=== PATIENT | female | born 1945 | race Caucasian/White ===

== ENCOUNTER 2019-05-29 12:06 | Emergency (ER) | payer MEDICARE ==
[2019-05-29] MEDS ORDERED: NS 0.9% 1000 ML** 1,000 ML IV ONE (12:08)
--- NOTE | 2019-05-29 12:14 | ED ---
Neurological HPI - HPI Summary HPI Summary: Pt is a 74 y/o F presenting to the ED brought in by EMS for altered mental status. LEVEL 5 CAVEAT: Pts full hx and physical limited d/t AMS. EMS arrival at 12:06pm. SANTANA MOJICA CALLED at 12:08pm. Per EMS, pts last known well is 02:30 on 05/29/19. Pts left early this morning to run errands and found her at 11:00 still lying in bed, alert but very disoriented and confused, responding with only one or two words at a time. Pt is on Coumadin for a history of a fib. On EMS stretcher, pt states she knows where she is but is unable to name [facility], instead says I m here. She is able to say her name. She answers "yes" to do you know what year it is" but does not respond when asked to say the year. Per EMS, blood glucose was 168. BP ranged between 200/150 and 100/70 per EMS. Pt denies pain. Pt directly to CT for santana mojica on EMS stretcher Pts in room as of 12:18. Pts confirms pts hx of CVA 5yrs ago that caused R eye visual changes without other deficits, as well as being on Coumadin since then, with no missed doses. He states he woke up around 0230 to feed their cat and the pt was asleep in bed, but stirred. The last time he saw her awake, alert, and oriented x3 was around 23:30 on 05/28/19, when they were going to sleep. He ran some errands this morning and returned around 11:00 to find her very confused with decreased level of responsiveness. states she was unable to speak at first, did nod, and unable to move extremities. The pt reportedly could understand what he was asking her, but was unable to adequately respond, as he asked if this seemed similar to her stroke and she said yes. Pt normally is independent, walking, driving, and fully functioning. Pts in room as of 12:18. Pts confirms pts hx of CVA 5yrs ago that caused R eye visual changes without other deficits, as well as being on Coumadin since then, with no missed doses. He states he woke up around 0230 to feed their cat and the pt was asleep in bed. The last time he saw her awake, alert, and oriented x3 was around 23:30 on 05/28/19, when they were going to sleep. He ran some errands this morning and returned around 11:00 to find her very confused with decreased level of responsiveness. The pt reportedly could understand what he was asking her, but was unable to adequately respond, as he asked if this seemed similar to her stroke and she said yes. Pt normally is independent, walking, driving, and fully functioning. Pt has not physical or mental limitations following previous stroke. Dr. العلي at bedside - 12:25 - introduced to family - pt with left MCA stroke - awaiting formal report 12:31 radiology called to discuss results of plain head CT. As of 12:34, pt denies headache and states she is feeling better. Per Dr. العلي , pt's BP is in the mid-200s systolic. He would like the BP to be controlled, below 180 systolic - recommend Labetolol IVP or cardene gtt -review of records, pt with allergy to Calcium channel tom ( throat swelling) Pt take metoprolol - did not take today. Pt with allergy to Timolol - will check with hospital pharmacy reviewed final CT report with Dr. العلي - requested I contact neuro at [facility] - History of Current Complaint Stated Complaint: AMS PER EMS Time Seen by Provider: 05/29/19 12:06 Last Known Well Date: 05/28/19 23:30 Hx Obtained From: Family/Microfilm Clerk - , EMS Hx From Patient Unobtainable Due To: Altered Mental Status Onset/Duration: Started hours ago, Still Present Timing: Constant Onset Severity: Moderate Current Severity: Moderate Character: Responsiveness Aggravating: Unknown Alleviating: Nothing Associated Signs and Symptoms: Positive: Confusion Related Hx: Coumadin - Allergy/Home Medications Allergies/Adverse Reactions: Allergies Allergy/AdvReac Type Severity Reaction Status Date / Time MS Amlodipine [From Norvasc] Allergy See Comment Verified 11/16/14 08:57 MS Brinzolamide [From Azopt] Allergy See Comment Verified 11/16/14 09:03 MS Lisinopril [Lisinopril] Allergy See Comment Verified 11/16/14 08:57 MS Timolol [Timolol] Allergy See Comment Verified 11/16/14 09:03 MS Travoprost Allergy See Comment Verified 11/16/14 09:03 [From Travatan Z] MS Valsartan [Valsartan] Allergy See Comment Verified 11/16/14 08:57 MS Epinephrine [Epinephrine] AdvReac See Comment Verified 11/16/14 08:53 simbrinza eye drop Allergy See Comment Uncoded 11/16/14 09:03 local pain medication "debra" AdvReac See Comment Uncoded 11/16/14 08:57 Home Medications: Home Medications Levobunolol 0.5% OPTH.ELHAM* 1 drop BOTH EYES BID 05/29/19 [History Confirmed 07/05] Metoprolol Succinate XL TAB* [Toprol XL TAB*] 37.5 mg PO DAILY 05/29/19 [ History Confirmed 05/29/19] Warfarin TAB(*) [Coumadin TAB(*)] 5 mg PO MOTUTHFRSA 05/29/19 [History Confirmed 05/29/19] PMH/Surg Hx/FS Hx/Imm Hx Previously Healthy: No Endocrine/Hematology History: Reports: Hx Anticoagulant Therapy - coumadin Denies: Hx Diabetes Cardiovascular History: Reports: Hx Atrial Fibrillation - stable for past 6- 7yrs as of may 2019, Hx Hypercholesterolemia - tx'ed with diet, Hx Hypertension Neurological History: Reports: 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 Pt's states there is no hx of seizures or CVA. - Social History Occupation: Retired Lives: With Family - Alcohol Use: None Hx Substance Use: No Substance Use Type: Reports: None Hx Tobacco Use: No Smoking Status (MU): Never Smoked Tobacco Review of Systems - ROS Summary Review of Systems Summary: LEVEL 5 CAVEAT: Pts full hx and physical limited d/t AMS. Negative: Myalgia Neurological: Other - AMS Negative: Headache All Other Systems Reviewed And Are Negative: No Physical Exam - Summary Physical Exam Summary: Vital Signs Reviewed: Yes Alert, eye open to voice, unable to answer most questions other then "Yes, No" answers Eyes: Conjunctiva Clear, TORI. EOM intact and full ENT: Hearing grossly normal TM x 2 clear, mmoist, uvula midline, no exudate, no erythema Neck: Positive: Supple Respiratory: Positive: No respiratory distress, No accessory muscle use + CTA throughout no w/r Cardiovascular: RRR nl s1, s2 no m/r CBT <2 sec abd soft + BS nt/nd no guarding, no distension Musculoskeletal Exam: Unable to move LE b/l, decreased movement left UE, weak RUE 4/5 grasp right - see NIH scale Neurological: Positive: NIH 24 - see flow sheet Psychological: 1 word answers, confused Skin: Positive: no rash, no ecchymosis Triage Information Reviewed: Yes Vital Signs Reviewed: Yes Completion Of Physical Exam Limited Due To: Altered Mental Status, Level 5 Procedures - Sedation Patient Received Moderate/Deep Sedation with Procedure: No Diagnostics - Laboratory Result Diagrams: 05/29/19 12:25 05/29/19 12:25 Lab Statement: Any lab studies that have been ordered have been reviewed, and results considered in the medical decision making process. - CT Brain CT CT Interpretation Completed By: Radiologist Summary of CT Findings: LOSS OF DÍAZ-WHITE DIFFERENTIATION IN THE LEFT FRONTAL AND ANTERIOR PARIETAL LOBE CONSISTENT WITH SUBACUTE NONHEMORRHAGIC INFARCT OF THE LEFT MCA TERRITORY. ED physician has reviewed this report. Head/Neck CTA CT Interpretation Completed By: Radiologist Summary of CT Findings: 1. ATHEROSCLEROSIS. 2. APPROXIMATELY 30% STENOSIS OF THE PROXIMAL RIGHT INTERNAL CAROTID ARTERY BY NASCET CRITERIA. 3. THERE IS QUESTIONABLE LOSS OF AN M3 BRANCH OF THE ANTERIOR DIVISION OF THE LEFT MCA TERRITORY. ELSEWHERE, THERE IS NO ANEURYSM, VASCULAR MALFORMATION, OCCLUSION, OR STENOSIS OF THE VISUALIZED INTRACRANIAL CIRCULATION. 4. HYPOPERFUSION RESPONSE WITH AREAS OF LOSS OF DÍAZ-WHITE DIFFERENTIATION OF THE LEFT MCA TERRITORY CONSISTENT WITH SUBACUTE NONHEMORRHAGIC INFARCT. ED physician has reviewed this report. - EKG 1243 Cardiac Rate: Other Rate - afib 87bpm EKG Rhythm: Atrial Fibrillation ST Segment: Other Ectopy: None Summary of EKG Findings: EKG at 1243 shows atrial fibrillation at 87bpm with slight ST depressions bilaterally. ED physician has reviewed and interpreted this EKG. NIH Scale - NIH Scale Level of Consciousness: Responds to Minor Stimulation Ask Patient the Month and His/Her Age: Neither Correct/Aphasic Ask Pt to Open/Close Eyes and Paper Reclaiming Machine Operator/Release Non-Paretic Hand: Both Correctly Best Gaze (Only Horizontal Eye Movement): Normal Visual Field Testing: No Visual Loss Facial Paresis-Pt to Smile & Close Eyes or Grimace Symmetry: Normal/Symmetrical Motor Function - Right Arm: Effort Against Newton Motor Function - Left Arm: No Effort Against Newton Motor Function - Right Leg: No Effort Against Newton Motor Function - Left Leg: No Effort Against Newton Limb Ataxia-Must be out of Proportion to Weakness Present: Present in Two Limbs Sensory (Use Pinprick to Test Arms/Legs/Trunk/Face): Severe to Total Loss Best Language (Describe Picture, Name Items): Severe Aphasia Dysarthria (Read Several Words): Slurs Some Words NIH Stroke Scale Comment: 24 Re-Evaluation - Re-Evaluation 1st re-eval Re-Evaluation Time: 12:53 Change: Unchanged Comment: Per Dr. العلي, we should discuss plan of care with [facility] for possible transfer if helicopters are not flying. call to transfer center, images pushed, paperwork initiated 2nd re-eval Re-Evaluation Time: 12:57 Change: Unchanged Comment: I spoke with Dr. Lacie Murcia from [place] who recommends 5mg push and then IV drip of Labetalol. Pt will transferred to [facility] and admitted NICU - updated Dr. العلي, pt and pt's at bedside 3rd re-eval Re-Evaluation Time: 13:42 Change: Unchanged Comment: Pt's BP decreasing as per ELINA Arita., after 5mg Labetalol push. pt with nausea - will give zofran Course/Dx - Course Course Of Treatment: Patient presents to emergency department by EMS. Patient found this morning by her aphasic decreased level of alertness and ability to move her lower extremities. Patient also with global weakness. EMS was called patient's blood sugar was 125. En route patient became a little more alert. Patient able to move her right arm was simply weak. Patient able to answer questions with yes or no but cannot expound. The patient's blood pressure noted to be markedly elevated. Concern for acute stroke. Patient does have history of strokes and is currently on warfarin. We'll send directly physical great CT. We'll update Dr. العلي neurologist on-call upon his arrival. We'll closely reassess when she returns. - Diagnoses Provider Diagnoses: Acute ischemic left MCA stroke During the Visit The Following Alert/Code Occurred: Code Mojica - Critical Care Time Critical Care Time: 75-104 min Discharge ED - Sign-Out/Discharge Documenting (check all that apply): Patient Departure - Discharge Plan Condition: Stable Disposition: TRANS HIGHER LVL OF CARE FAC Referrals: Tim Garcia MD [Medical Doctor] - - Billing Disposition and Condition Condition: STABLE Disposition: Trans Higher Lvl of Care Fac - Attestation Statements Document Initiated by Scribe: Yes Documenting Scribe: Kaila Lundberg Provider For Whom Kole is Documenting (Include Credential): Arely Schrader MD. Scribe Attestation: Kaila Kirby, scribed for Arely Schrader MD. on 05/29/19 at 1342. Scribe Documentation Reviewed: Yes Provider Attestation: The documentation as recorded by the Kaila pascual accurately reflects the service I personally performed and the decisions made by , Arely Schrader MD. Status of Scribe Document: Viewed
[2019-05-29] MEDS ORDERED: Iodixanol* (CONTRAST) 320 MG/ML 100 ML SDV IV ONE (12:27)
[2019-05-29] MEDS ORDERED: Aspirin SUPP* 300 MG PR ONE (12:42)
[2019-05-29 12:46] LABS: ABS Lymphocytes 0.5 10^3/ul (1.0-4.8); ABS Monocytes 0.2 10^3/ul (0-0.8); ABS Neutrophils 6.7 10^3/ul (1.5-7.7); Eosinophil % 0.1 %; Hematocrit 42 % (35-47); Hemoglobin 13.8 g/dL (12.0-16.0); Lymphocyte % 6.8 %; Mean Corpuscular HGB Conc 33 g/dL (31-36); Mean Corpuscular Hemoglobin 31 pg (27-31); Mean Corpuscular Volume 93 fL (80-97); Mean Platelet Volume 8.3 fL (7.4-10.4); Platelet Count 178 10^3/uL (150-450); Red Blood Count 4.48 10^6 /uL (3.70-4.87); Red Cell Distribution Width 15 % (10-15); White Blood Count 7.5 10^3/uL (3.5-10.8)
[2019-05-29 12:53] LABS: Activated Partial Thrombo Time 31.8 seconds (26.0-38.0); INR 1.91 (0.82-1.09)
[2019-05-29 13:05] LABS: Troponin I 0.01 ng/mL (<0.04)
[2019-05-29] MEDS ORDERED: Labetalol IV* 200 MG in NS 0.9% 250 ML* 160 ML IV ONE (13:05)
[2019-05-29 13:06] LABS: Albumin 3.6 g/dL (3.2-5.2); Albumin/Globulin Ratio 1.3 (1-3); BUN/Creatinine Ratio 28.3 (8-20); Calcium 8.1 mg/dL (8.6-10.3); EGFR African American 136.8 (>60); EGFR Non-African American 113.1 (>60); Globulin 2.8 g/dL (2-4); HDL Cholesterol 45.8 mg/dL; Potassium 3.1 mmol/L (3.5-5.0); Total Bilirubin 0.8 mg/dL (0.2-1.0); Total Protein 6.4 g/dL (6.4-8.9)
[2019-05-29] MEDS ORDERED: Labetalol IV* 5 MG/ML 20 ML VIAL IV PUSH ONE ×2 (13:11→14:02)
[2019-05-29] MEDS ORDERED: Ondansetron INJ* 2 MG/ML VIAL IV ONE ×2 (13:41→13:42)
[2019-05-29] MEDS ORDERED: KCL 10 MEQ/50 ML IVPREMIX* 10 MEQ/50 ML BAG IV ONE (14:06)
[2019-05-29 14:50] VITALS: BP 187/93
--- NOTE | 2019-05-29 16:03 | CONS ---
NEUROLOGY CONSULTATION NOTE: DATE OF CONSULT: 05/29/19 - EMERGENCY DEPT CONSULTING PROVIDER: Dr. Arely Schrader. REASON FOR CONSULT: Stroke and activated Code Hernandez. CHIEF COMPLAINT: Severe aphasia. HISTORY OF PRESENT ILLNESS: The history was mostly obtained from Mr. Freed, who was at bedside. The patient has severe aphasia and is unable to provide any medical history. The patient is a 74-year-old right-handed female who is completely independent with a prehospitalization modified Jenny score of 0. She was driving prior to this admission. The patient was last known well at 11: 30 a.m. last night. Mr. Freed stated that he woke up at 2 o'clock and she was making noises, but no conversation was held. Mr. Freed checked on the patient at approximately 11 a.m. today and noticed that she was nonverbal and minimally responsive. Her eyes were open. She was unable to move. When he asked her if she was having a stroke, she nodded yes. The patient immediately presented to [facility] via EMS. Accu-Chek per EMS was 116. The patient had an NIH Stroke Scale of approximately 25 for the followin+ for level of consciousness, 1+ for asking month and age, 0 for blinking eyes, 0 for horizontal extraocular movement and visual field cut, 2+ for complete hemianopsia on the right. Right facial droop with minor paralysis, 1+ left arm motor drifts, but does not hit the bed on the left, drifts and does not hit the bed on the right, left leg motor drift. No movements on the left. Right leg motor drift. No effort against gravity. Limb ataxia to limbs, which gives us a score of 2. Sensation mild to moderate, can sense being touched, aphasia, new global aphasia, dysarthria, new/anarthric extension, no abnormality. The patient's NIH Stroke Scale of 22. She had a CT of the head that showed a low attenuation in the left frontoparietal region suggesting acute to subacute infarct. CTA of the head and neck was completed on an urgent basis. The CTA showed evidence of a questionable loss of M3 branch of the anterior division of the left MCA territory consistent with a distal vessel occlusion. There is 30% stenosis of the proximal ICA. There is hypoperfusion of the area of the loss of hernandez-white differentiation to the left MCA vascular territory consistent with subacute nonhemorrhagic stroke. The patient's blood pressure today was as high of 241/150. The patient denied any headaches. She has history of left retinal artery occlusion 5 years ago. She has no history of intracranial stroke or vascular disease. PAST MEDICAL HISTORY: Hypertension; atrial fibrillation, on Coumadin; dyslipidemia; rule out retinal artery occlusion on the left eye; hypothyroidism. PAST SURGICAL HISTORY: Appendectomy. MEDICATIONS: 1. Warfarin 7.5 mg p.o. daily. 2. Levothyroxine 100 mcg p.o. daily. 3. Latanoprost eye drops 1 drop both eyes at bedtime. 4. Levobunolol 1 drop both eyes b.i.d. 5. Warfarin 5 mg p.o. Tuesday, Tuesday, , Tuesday, Tuesday. 6. Metoprolol 37.5 mg p.o. daily. ALLERGIES: AMLODIPINE, BRINZOLAMIDE, LISINOPRIL, TIMOLOL, TRAVOPROST. REVIEW OF SYSTEMS: A 14-point review of systems was unable to be obtained due to the patient's aphasia; however, she did deny any history of headaches or visual disturbance. PHYSICAL EXAM: Vitals: Temperature 98.1, pulse of 83, respiratory rate of 14, oxygen saturation of 95%, blood pressure currently is 199/118. General: Ill- appearing female, in no acute distress. Appears younger than stated age. Head : Atraumatic, normocephalic without any obvious abnormality. Neck is supple and symmetrical without any carotid bruit. Cardiovascular: Regular rate and rhythm with normal S1, S2. Chest: Clear to auscultation bilaterally with no wheezing or rhonchi. Extremities: Normal range of motion with no cyanosis. No hammertoes or high arches. Skin: No skin lesions or lacerations. Psych: Not applicable. Neurological Examination: Mental Status: The patient has severe global aphasia. She does respond by perseverating yes throughout the history process. Once she lies flat, the patient was able to respond by also stating no and trying to produce some words with significant difficulties. Cranial Nerves: Pupils are equal, round, and reactive to light. There is right homonymous hemianopia, right facial droop. She was unable to stick out her tongue. Motor Examination: She has diffuse weakness mostly involving the left leg greater than the right leg and left arm greater than the right arm. She is able to elevate both upper extremities antigravity. However, she seems slightly weaker on the left upper extremity. She also was able to move and flex the knee on the right side, but not the left. Sensation: Unable to assess , but the patient did grimace and withdrew to distal noxious stimuli throughout. Coordination: Unable to assess due to the patient's inability to follow command. Reflexes: 1+ throughout with extensor plantar responses bilaterally. Gait: Not assessed. DIAGNOSTIC STUDIES/LAB DATA: Labs, imaging, and other diagnostic testing: WBC of 7.5, hemoglobin of 13.8, hematocrit of 42, platelet count of 178. INR is 1.91, APTT 31. Sodium of 135, potassium 3.1, chloride of 102, carbon dioxide of 24, anion gap of 9, BUN of 15, BUN/creatinine ratio of 28.3, glucose of 142, calcium of 8.2. LDL of 145, total cholesterol of 203, HDL cholesterol of 45. CT and CTA head as discussed earlier. IMPRESSION AND RECOMMENDATIONS: Ms. Tracy Freed is a 74-year-old female who has a history of atrial fibrillation on anticoagulation therapy, who has a slightly subtherapeutic INR at 1.91, who has hypertension and dyslipidemia, who presented to [facility] today with sudden onset aphasia and quadriparesis. The patient on examination has evidence of multi cerebral infarcts given that she has right hemineglect aphasia and left worse than right hemiparesis. The etiology here is most likely atrial fibrillation or some calcification in the aortic arch that embolized to the brain. I do not see any evidence of hemorrhage on CAT scan. Although there is no clear LVO, Dr. Henderson thought that there could possibly be an M3 occlusion on the left MCA vascular territory. NIH Stroke Scale is high. The patient was deemed not a candidate for IV tPA at 1:10 p.m. today on 05/29/19 since she is outside the window and she is on Coumadin with elevated INR. It is unclear if she would be a candidate for mechanical thrombectomy. I see an early stroke finding in the left hemisphere, but again this could be an early finding. I do not see a clear proximal LVO, but depending on the surgical expertise, there are cases where distal M3 clots are being retrieved in hyperacute stroke. Therefore, I recommend to contact [facility] and see if the patient would be a candidate for mechanical thrombectomy. After Dr. Schrader talked with the [facility] Endovascular Team, [facility] has agreed to accept the patient via ground EMS. We were unable to fly the patient to [facility] due to the current weather. We contacted the air fly team to confirm. In the meantime, I recommend aggressive blood pressure monitoring and to reduce her systolic blood pressure to the range of 180/220 mmHg. Keep the head of bed flat. Neuro checks every 15 minutes. I discussed the recommendation with Mr. Freed and he verbalized understanding and agreement to transport to [facility]. Initially, he was interested to go into [facility], but given that the accepting physician at [facility] had agreed to take the patient already and plus we cannot fly the patient to [facility] the closest comprehensive stroke center is [facility] and that was recommended. He agreed to proceed with the transfer. Please start the patient on aspirin 325 x1. Hold anticoagulation therapy. No need to reverse the INR since she does not have any evidence of bleeding. Defer further management to [facility]. For acute blood pressure management, please start the patient on labetalol 10 mg x1 and can repeat another 10 mg within 15 minutes. [id number]/[facility] #: [id number] MTDD
== END 2019-05-29 15:03 | disposition short-term general hospital (02) ==
LOC: ED 12:06
DX: I63.512 Cerebral infarction due to unspecified occlusion or stenosis of left middle cerebral artery (principal); R53.1 Weakness; R41.82 Altered mental status, unspecified; R29.810 Facial weakness; I10 Essential (primary) hypertension; R11.0 Nausea; I70.0 Atherosclerosis of aorta; I48.91 Unspecified atrial fibrillation; Z79.01 Long term (current) use of anticoagulants; Z88.8 Allergy status to other drugs, medicaments and biological substances
CPT/HCPCS: 36415; 70450; 70496; 70498; 71045; 80053; 80061; 83605; 84484; 85025; 85610; 85730; 93005; 96361; 96365; 96375; 96376; 99285; A9270-GY; J2405; J3480; Q9967

== ENCOUNTER 2020-01-10 16:27 | Inpatient (IN) ==
[2020-01-10] MEDS ORDERED: Rocuronium 50 mg VIAL 10 mg/ml 5 ml VIAL (50 mg) ONE ×2 (16:34→16:39)
[2020-01-10] MEDS ORDERED: NS 0.9% 1000 ml BAG 1,000 ML IV ONE (16:34)
[2020-01-10] MEDS ORDERED: Succinylcholine 200 mg VIAL 20 mg/ml 10 ml VIAL (200 mg) ONE (16:34)
[2020-01-10] MEDS ORDERED: Propofol 10 mg/ml 100 ML BTL 100 ML ONE (16:36)
[2020-01-10] MEDS ORDERED: Propofol 10 mg/ml 100 ML BTL 100 ML IV ONE (16:37)
[2020-01-10] MEDS ORDERED: Propofol 10 MG/ML 20 ML BTL IV PUSH ONE (16:38)
[2020-01-10] MEDS ORDERED: Rocuronium 50 mg VIAL 10 mg/ml 5 ml VIAL (50 mg) IV ONE (16:38)
[2020-01-10 16:42] LABS: ABS Eosinophils 0.3 10^3/ul (0-0.6); ABS Lymphocytes 1.5 10^3/ul (1.0-4.8); ABS Monocytes 0.6 10^3/ul (0-0.8); Eosinophil % 4.7 %; Hematocrit 41 % (35-47); Hemoglobin 13.9 g/dL (12.0-16.0); Lymphocyte % 24.9 %; Mean Corpuscular HGB Conc 34 g/dL (31-36); Mean Corpuscular Hemoglobin 33 pg (27-31); Mean Corpuscular Volume 97 fL (80-97); Mean Platelet Volume 8.4 fL (7.4-10.4); Nucleated Red Blood Cells % 0.1; Platelet Count 224 10^3/uL (150-450); Red Blood Count 4.23 10^6 /uL (3.70-4.87); Red Cell Distribution Width 15 % (10-15); White Blood Count 6.1 10^3/uL (3.5-10.8)
[2020-01-10 16:51] LABS: Activated Partial Thrombo Time 30.6 seconds (26.0-38.0); INR 1.18 (0.82-1.09)
[2020-01-10] MEDS ORDERED: Iodixanol (CONTRAST) 320 MG/ML 100 ML SDV IV ONE (16:54)
[2020-01-10 17:02] LABS: Troponin I 0.02 ng/mL (<0.03)
[2020-01-10 17:07] LABS: Albumin 4.2 g/dL (3.2-5.2); Albumin/Globulin Ratio 1.4 (1-3); Calcium 9.9 mg/dL (8.6-10.3); EGFR African American 85.1 (>60); EGFR Non-African American 70.3 (>60); HDL Cholesterol 57.2 mg/dL; Potassium 3.7 mmol/L (3.5-5.0); Total Bilirubin 0.7 mg/dL (0.2-1.0); Total Protein 7.2 g/dL (6.4-8.9)
[2020-01-10] MEDS ORDERED: levETIRAcetam IV 1,500 MG in NS 0.9% 100 ml BAG 100 ML IVPB SCH (18:00)
[2020-01-10] MEDS ORDERED: Labetalol IV 5 MG/ML 20 ml VIAL IV PUSH ONE ×2 (18:11→19:26)
[2020-01-10] MEDS ORDERED: fentaNYL 100 mcg/2 ml 50 MCG/ML VIAL IV SLOW PU ONE (18:23)
[2020-01-10] MEDS ORDERED: levETIRAcetam IV* 1,500 MG in NS 100 mL IVPB ONE (18:30)
[2020-01-10] MEDS ORDERED: Ondansetron 4 mg VIAL 2 MG/ML 2 ml VIAL IV PRN (20:42)
[2020-01-10] MEDS ORDERED: hydrALAZINE 20 mg/ml 1 ML Vial IV IV SLOW PU PRN (20:42)
[2020-01-10 21:04] LABS: Urine Appearance Clear; Urine Bilirubin Negative (Negative); Urine Blood Negative (Negative); Urine Color Straw; Urine Glucose 1+(50 mg/dL) (Negative); Urine Ketones 1+ (Negative); Urine Nitrite Negative (Negative); Urine Protein Negative (Negative); Urine Specific Gravity 1.013 (1.010-1.030); Urine Urobilinogen Negative (Negative)
[2020-01-10 21:17] LABS: Troponin I 0.07 ng/mL (<0.03)
[2020-01-10] MEDS: NS 0.9% 1000 ml BAG 1,000 ML IV SCH (22:04)
[2020-01-10] MEDS: Latanoprost 0.005% 2.5 ml BTL BOTH EYES SCH (22:35)
[2020-01-10] MEDS: Propofol 10 mg/ml 100 ML BTL 100 ML IV SCH (22:43)
[2020-01-10] MEDS: LEVOBUNOLOL 0.5% BOTH EYES SCH (22:50)
[2020-01-11] MEDS: Chlorhexidine MOUTHWASH 0.12% 15 ML UDC TOPICAL SCH ×2 (02:27→05:13)
[2020-01-11 02:39] LABS: Troponin I 0.06 ng/mL (<0.03)
[2020-01-11 05:15] LABS: ABS Eosinophils 0.1 10^3/ul (0-0.6); ABS Lymphocytes 0.5 10^3/ul (1.0-4.8); ABS Monocytes 1.1 10^3/ul (0-0.8); Eosinophil % 0.5 %; Hematocrit 42 % (35-47); Hemoglobin 14.3 g/dL (12.0-16.0); Lymphocyte % 4.2 %; Mean Corpuscular HGB Conc 34 g/dL (31-36); Mean Corpuscular Hemoglobin 32 pg (27-31); Mean Corpuscular Volume 96 fL (80-97); Mean Platelet Volume 8.7 fL (7.4-10.4); Platelet Count 162 10^3/uL (150-450); Red Cell Distribution Width 14 % (10-15); White Blood Count 11.3 10^3/uL (3.5-10.8)
[2020-01-11 05:39] LABS: CO2 Carbon Dioxide 16 mmol/L (22-32); Calcium 8.7 mg/dL (8.6-10.3); Chloride 105 mmol/L (101-111); Sodium 136 mmol/L (135-145)
[2020-01-11 05:45] LABS: BUN/Creatinine Ratio 27.5 (8-20); Blood Urea Nitrogen 14 mg/dL (6-24); EGFR Non-African American 118.2 (>60); Glucose 101 mg/dL (70-100)
[2020-01-11 05:50] LABS: Anion Gap 15 mmol/L (2-11)
[2020-01-11] MEDS: Propofol 10 mg/ml 100 ML BTL 100 ML IV SCH (06:22)
[2020-01-11 06:33] LABS: INR 1.38 (0.82-1.09)
[2020-01-11] MEDS ORDERED: Propofol* 20 ML VIAL - FOR IV LINE PRIMING ONLY SCH (07:00)
[2020-01-11] MEDS: levETIRAcetam 1000MG IVPREMIX 1,000 MG/100 ML BAG IVPB SCH ×2 (07:56→20:39)
[2020-01-11] MEDS: NS 0.9% 1000 ml BAG 1,000 ML IV SCH ×2 (07:56→14:53)
[2020-01-11] MEDS: LEVOBUNOLOL 0.5% BOTH EYES SCH ×3 (10:25→20:09)
[2020-01-11] MEDS: Famotidine IV 10 MG/ML 2 ml VIAL (20 mg) IV SLOW PU SCH (10:27)
[2020-01-11] MEDS ORDERED: NS 0.9% 500 ml BAG 500 ML IV ONE (14:25)
[2020-01-11] MEDS: Latanoprost 0.005% 2.5 ml BTL BOTH EYES SCH (20:39)
[2020-01-12] MEDS: levETIRAcetam 1000MG IVPREMIX 1,000 MG/100 ML BAG IVPB SCH (08:15)
[2020-01-12] MEDS: LEVOBUNOLOL 0.5% BOTH EYES SCH ×2 (08:18→20:05)
[2020-01-12] MEDS: Famotidine IV 10 MG/ML 2 ml VIAL (20 mg) IV SLOW PU SCH ×2 (08:18→08:19)
[2020-01-12] MEDS: Aspirin EC 81 mg TAB.EC (enteric coated) PO SCH (10:03)
[2020-01-12 16:44] LABS: Urine Appearance Cloudy; Urine Bilirubin Negative (Negative); Urine Blood 2+ (Negative); Urine Color Yellow; Urine Glucose Negative (Negative); Urine Ketones Trace (Negative); Urine Nitrite Positive (Negative); Urine Protein Negative (Negative); Urine Specific Gravity 1.011 (1.010-1.030); Urine Urobilinogen Negative (Negative)
[2020-01-12 16:47] LABS: Urine Bacteria 1+ (Absent); Urine Red Blood Cell Trace(0-2/hpf) (Absent); Urine Squamous Epithelial Cell Present (Absent); Urine White Blood Cell 3+(>20/hpf) (Absent)
[2020-01-12] MEDS: Latanoprost 0.005% 2.5 ml BTL BOTH EYES SCH (20:04)
[2020-01-13 09:18] LABS: ABS Eosinophils 0.2 10^3/ul (0-0.6); ABS Lymphocytes 0.8 10^3/ul (1.0-4.8); ABS Monocytes 0.7 10^3/ul (0-0.8); Eosinophil % 3.8 %; Hematocrit 36 % (35-47); Hemoglobin 12.3 g/dL (12.0-16.0); Lymphocyte % 13.2 %; Mean Corpuscular HGB Conc 34 g/dL (31-36); Mean Corpuscular Hemoglobin 33 pg (27-31); Mean Corpuscular Volume 96 fL (80-97); Mean Platelet Volume 8.6 fL (7.4-10.4); Platelet Count 186 10^3/uL (150-450); Red Blood Count 3.77 10^6 /uL (3.70-4.87); Red Cell Distribution Width 15 % (10-15); White Blood Count 5.9 10^3/uL (3.5-10.8)
[2020-01-13 09:33] LABS: BUN/Creatinine Ratio 26.5 (8-20); Calcium 9.2 mg/dL (8.6-10.3); EGFR African American 149.8 (>60); EGFR Non-African American 123.8 (>60); Potassium 3.1 mmol/L (3.5-5.0)
[2020-01-13] MEDS ORDERED: Potassium Chlor 20 meq TAB.ER PO ONE (09:49)
[2020-01-13] MEDS ORDERED: KCL 20 MEQ/100 ML IVPREMIX 20 MEQ/100 ML BAG IV ONE (09:49)
[2020-01-13] MEDS: Aspirin EC 81 mg TAB.EC (enteric coated) PO SCH (09:57)
[2020-01-13] MEDS: LEVOBUNOLOL 0.5% BOTH EYES SCH (09:57)
[2020-01-13] MEDS: Famotidine IV 10 MG/ML 2 ml VIAL (20 mg) IV SLOW PU SCH (09:57)
[2020-01-13 12:16] VITALS: BP 184/84
== END 2020-01-13 15:10 | disposition home or self-care (01) | DRG 101 ==
LOC: ED 16:27 → ICU 20:28 → MEDTELE 01-11 14:34
PROVIDERS: ADMIT Nurse Practitioner Family; ATTEND Internal Medicine

== ENCOUNTER 2020-09-25 06:15 | Observation (INO) ==
[2020-09-25] MEDS ORDERED: NS 0.9% 1000 ml BAG 1,000 ML IV ONE ×2 (06:17→08:56)
[2020-09-25] MEDS ORDERED: Iodixanol (CONTRAST) 320 MG/ML 100 ML SDV IV ONE (06:38)
[2020-09-25] MEDS ORDERED: Dextrose 50% Syringe 50 ml 25 GM/50 ML SYRINGE ONE (06:56)
[2020-09-25] MEDS ORDERED: Dextrose 50% Syringe 50 ml 25 GM/50 ML SYRINGE IV PUSH ONE (06:59)
[2020-09-25 07:05] LABS: ABS Eosinophils 0.3 10^3/ul (0-0.6); ABS Lymphocytes 0.9 10^3/ul (1.0-4.8); ABS Monocytes 0.6 10^3/ul (0-0.8); ABS Neutrophils 2.8 10^3/ul (1.5-7.7); Eosinophil % 6.1 %; Hematocrit 43 % (35-47); Hemoglobin 14.5 g/dL (12.0-16.0); Lymphocyte % 19.9 %; Mean Corpuscular HGB Conc 34 g/dL (31-36); Mean Corpuscular Hemoglobin 32 pg (27-31); Mean Corpuscular Volume 94 fL (80-97); Mean Platelet Volume 8.8 fL (7.4-10.4); Platelet Count 204 10^3/uL (150-450); Red Blood Count 4.51 10^6 /uL (3.70-4.87); Red Cell Distribution Width 14 % (10-15); White Blood Count 4.6 10^3/uL (3.5-10.8)
[2020-09-25 07:13] LABS: Urine Appearance Clear; Urine Bilirubin Negative (Negative); Urine Blood Negative (Negative); Urine Color Colorless; Urine Glucose Negative (Negative); Urine Ketones Trace (Negative); Urine Nitrite Negative (Negative); Urine Protein Negative (Negative); Urine Specific Gravity 1.016 (1.010-1.030); Urine Urobilinogen Negative (Negative)
[2020-09-25 07:15] LABS: Activated Partial Thrombo Time 37.1 seconds (26.0-38.0); INR 1.34 (0.82-1.09)
[2020-09-25 07:17] LABS: Urine Bacteria Absent (Absent); Urine Red Blood Cell Trace(0-2/hpf) (Absent); Urine Squamous Epithelial Cell Present (Absent); Urine White Blood Cell Trace(0-5/hpf) (Absent)
[2020-09-25 07:23] LABS: Albumin 3.9 g/dL (3.2-5.2); Albumin/Globulin Ratio 1.4 (1-3); BUN/Creatinine Ratio 23.5 (8-20); Calcium 9.6 mg/dL (8.6-10.3); EGFR African American 102.3 (>60); EGFR Non-African American 84.6 (>60); Globulin 2.8 g/dL (2-4); HDL Cholesterol 58.4 mg/dL; Potassium 3.7 mmol/L (3.5-5.0); Total Bilirubin 0.9 mg/dL (0.2-1.0); Total Protein 6.7 g/dL (6.4-8.9)
[2020-09-25 07:24] LABS: Troponin I 0.01 ng/mL (<0.03)
[2020-09-25] MEDS ORDERED: LORazepam 2 mg VIAL 1 ml IV PUSH ONE (07:40)
[2020-09-25] MEDS ORDERED: Lorazepam PYXIS KEY PRN (07:40)
[2020-09-25] MEDS ORDERED: Lorazepam PYXIS KEY ONE (07:45)
[2020-09-25] MEDS ORDERED: LORazepam 2 mg VIAL 1 ml ONE (07:46)
[2020-09-25] MEDS ORDERED: hydrALAZINE 20 mg/ml 1 ML Vial IV IV SLOW PU ONE (07:54)
[2020-09-25] MEDS ORDERED: Ondansetron 4 mg VIAL 2 MG/ML 2 ml VIAL IV PRN (09:00)
[2020-09-25] MEDS: OPTH BOTH EYES SCH ×2 (11:44→20:41)
[2020-09-25] MEDS: LEVOBUNOLOL 0.5% BOTH EYES SCH ×2 (11:44→20:41)
[2020-09-25] MEDS ORDERED: levETIRAcetam 500 MG IVPREMIX 500 MG/100 ML BAG IV ONE (15:00)
[2020-09-25] MEDS: PTO: Dorzolamide/Timolol OPTH (NF) 10 ML BOT RIGHT EYE SCH (20:58)
[2020-09-25] MEDS ORDERED: Latanoprost 0.005% 2.5 ml BTL BOTH EYES SCH (21:00)
[2020-09-26 06:20] LABS: BUN/Creatinine Ratio 33.3 (8-20); Calcium 9.5 mg/dL (8.6-10.3); EGFR African American 95.8 (>60); EGFR Non-African American 79.2 (>60); Potassium 3.3 mmol/L (3.5-5.0)
[2020-09-26] MEDS: PTO: Dorzolamide/Timolol OPTH (NF) 10 ML BOT RIGHT EYE SCH (09:15)
[2020-09-26] MEDS: LEVOBUNOLOL 0.5% BOTH EYES SCH (09:17)
[2020-09-26] MEDS: OPTH BOTH EYES SCH (09:17)
[2020-09-26 16:24] VITALS: BP 140/70
== END 2020-09-26 17:30 | disposition home or self-care (01) ==
LOC: MEDTELE 06:15 → ED 06:15 → MEDTELE 09:50
PROVIDERS: ADMIT Internal Medicine; ATTEND Internal Medicine

== ENCOUNTER 2020-11-29 13:51 | Inpatient (IN) ==
[2020-11-29] MEDS ORDERED: NS 0.9% 1000 ml BAG 1,000 ML IV ONE (13:54)
[2020-11-29 14:17] LABS: ABS Eosinophils 0.3 10^3/ul (0-0.6); ABS Lymphocytes 0.9 10^3/ul (1.0-4.8); ABS Monocytes 0.6 10^3/ul (0-0.8); ABS Neutrophils 5.2 10^3/ul (1.5-7.7); Eosinophil % 4.1 %; Hematocrit 42 % (35-47); Hemoglobin 14.3 g/dL (12.0-16.0); Mean Corpuscular HGB Conc 34 g/dL (31-36); Mean Corpuscular Hemoglobin 32 pg (27-31); Mean Corpuscular Volume 95 fL (80-97); Mean Platelet Volume 8.5 fL (7.4-10.4); Platelet Count 206 10^3/uL (150-450); Red Cell Distribution Width 15 % (10-15); White Blood Count 7.1 10^3/uL (3.5-10.8)
[2020-11-29] MEDS ORDERED: Ondansetron 4 mg VIAL 2 MG/ML 2 ml VIAL ONE (14:17)
[2020-11-29] MEDS ORDERED: Iodixanol (CONTRAST) 320 MG/ML 100 ML SDV IV ONE (14:18)
[2020-11-29] MEDS ORDERED: Ondansetron 4 mg VIAL 2 MG/ML 2 ml VIAL IV ONE (14:19)
[2020-11-29] MEDS ORDERED: Diltiazem IV push/loading dose 5 MG/ML 5 ML vial (25 mg) IV SLOW PU ONE (14:24)
[2020-11-29 14:25] LABS: Activated Partial Thrombo Time 31.8 seconds (26.0-38.0); INR 1.18 (0.82-1.09)
[2020-11-29] MEDS ORDERED: Diltiazem (ADVAN VIAL) 100 MG/100 ML ADDV.BAG IV ONE (14:26)
[2020-11-29] MEDS ORDERED: Diltiazem IV push/loading dose 5 MG/ML 5 ML vial (25 mg) ONE (14:27)
[2020-11-29 14:37] LABS: ALT 17 U/L (7-52); Albumin 3.9 g/dL (3.2-5.2); Albumin/Globulin Ratio 1.5 (1-3); Alkaline Phosphatase 53 U/L (34-104); Blood Urea Nitrogen 13 mg/dL (6-24); CO2 Carbon Dioxide 26 mmol/L (22-32); Chloride 101 mmol/L (101-111); Cholesterol 210 mg/dL; EGFR African American 118.2 (>60); EGFR Non-African American 97.7 (>60); Globulin 2.6 g/dL (2-4); Glucose 109 mg/dL (70-100); HDL Cholesterol 49.4 mg/dL; LDL Cholesterol 144 mg/dL; Sodium 134 mmol/L (135-145); Total Protein 6.5 g/dL (6.4-8.9); Triglycerides 82 mg/dL
[2020-11-29 14:46] LABS: Troponin I 0.04 ng/mL (<0.03)
[2020-11-29 14:47] LABS: AST 25 U/L (13-39); Anion Gap 7 mmol/L (2-11); Potassium 4.6 mmol/L (3.5-5.0)
[2020-11-29] MEDS ORDERED: Diltiazem (ADVAN VIAL) 100 MG/100 ML ADDV.BAG IV SCH (15:00)
[2020-11-29 15:04] LABS: Urine Appearance Clear; Urine Bacteria Absent (Absent); Urine Bilirubin Negative (Negative); Urine Blood 1+ (Negative); Urine Color Straw; Urine Glucose Negative (Negative); Urine Ketones Trace (Negative); Urine Nitrite Negative (Negative); Urine Protein Negative (Negative); Urine Red Blood Cell 1+(3-5/hpf) (Absent); Urine Specific Gravity 1.027 (1.002-1.030); Urine Squamous Epithelial Cell Present (Absent); Urine Urobilinogen Negative (Negative); Urine White Blood Cell Trace(0-5/hpf) (Absent)
[2020-11-29 15:13] LABS: Creatine Kinase 31 U/L (10-223)
[2020-11-29] MEDS ORDERED: LORazepam 2 mg VIAL 1 ml IV PUSH ONE (16:57)
[2020-11-29] MEDS ORDERED: Lorazepam PYXIS KEY PRN (16:57)
[2020-11-29] MEDS ORDERED: hydrALAZINE 20 mg/ml 1 ML Vial IV ONE (18:08)
[2020-11-29] MEDS: hydrALAZINE 20 mg/ml 1 ML Vial IV IV SLOW PU PRN (18:11)
[2020-11-29 19:08] LABS: Troponin I 0.06 ng/mL (<0.03)
[2020-11-29 19:46] LABS: Magnesium 1.8 mg/dL (1.9-2.7)
[2020-11-29] MEDS: levETIRAcetam IV 250 MG in NS 0.9% 100 ml BAG 100 ML IVPB SCH (20:20)
[2020-11-29] MEDS ORDERED: Labetalol IV 5 MG/ML 20 ml VIAL IV PUSH ONE (20:53)
[2020-11-29] MEDS: Latanoprost 0.005% 2.5 ml BTL LEFT EYE SCH (20:56)
[2020-11-29] MEDS: CMCS: Dorzolamide/Timolol OPTH (NF) 10 ML BOT RIGHT EYE SCH (20:59)
[2020-11-29] MEDS: Netarsudil Mesylat/Lananoprost 0.02%-0.005% EYE DRP 2.5 ml BOTTLE RIGHT EYE SCH (21:00)
[2020-11-30 04:29] LABS: ABS Lymphocytes 0.4 10^3/ul (1.0-4.8); ABS Monocytes 0.2 10^3/ul (0-0.8); ABS Neutrophils 7.7 10^3/ul (1.5-7.7); Hematocrit 42 % (35-47); Hemoglobin 14.5 g/dL (12.0-16.0); Lymphocyte % 4.9 %; Mean Corpuscular HGB Conc 34 g/dL (31-36); Mean Corpuscular Hemoglobin 33 pg (27-31); Mean Corpuscular Volume 95 fL (80-97); Mean Platelet Volume 8.5 fL (7.4-10.4); Platelet Count 246 10^3/uL (150-450); Red Blood Count 4.45 10^6 /uL (3.70-4.87); Red Cell Distribution Width 15 % (10-15); White Blood Count 8.3 10^3/uL (3.5-10.8)
[2020-11-30 04:40] LABS: CO2 Carbon Dioxide 22 mmol/L (22-32); Chloride 97 mmol/L (101-111); Magnesium 1.6 mg/dL (1.9-2.7); Sodium 132 mmol/L (135-145)
[2020-11-30 04:46] LABS: Blood Urea Nitrogen 9 mg/dL (6-24); EGFR African American 139.5 (>60); EGFR Non-African American 115.3 (>60); Glucose 142 mg/dL (70-100); Phosphorus 3.2 mg/dL (2.5-5.0)
[2020-11-30 05:01] LABS: Anion Gap 13 mmol/L (2-11)
[2020-11-30] MEDS: Levothyroxine 100 MCG/5 ML VIAL IV SCH (05:25)
[2020-11-30] MEDS ORDERED: Magnesium Sulf 4 GM/100 ML IV 4,000 MG/100 ML BAG IVPB ONE (08:44)
[2020-11-30] MEDS: levETIRAcetam IV 250 MG in NS 0.9% 100 ml BAG 100 ML IVPB SCH (09:06)
[2020-11-30] MEDS: CMCS: Dorzolamide/Timolol OPTH (NF) 10 ML BOT RIGHT EYE SCH (09:08)
[2020-11-30] MEDS ORDERED: Piperacillin/Tazobac ADVAN 3.375 GM in NS 0.9% 100 ml BAG 100 ML IV ONE (10:39)
[2020-11-30] MEDS ORDERED: Zosyn per Pharmacy NOTE FOLLOW UP SCH (11:00)
[2020-11-30] MEDS ORDERED: Labetalol IV 5 MG/ML 20 ml VIAL IV PUSH PRN (11:26)
[2020-11-30] MEDS: Acetaminophen IV 1 GM/100ML 100 ML IVPB SCH ×2 (11:41→18:08)
[2020-11-30 12:02] LABS: Urine Appearance Clear; Urine Bilirubin Negative (Negative); Urine Blood Negative (Negative); Urine Color Yellow; Urine Glucose 1+(50 mg/dL) (Negative); Urine Ketones 2+ (Negative); Urine Nitrite Negative (Negative); Urine Protein 2+(100 mg/dL) (Negative); Urine Specific Gravity 1.025 (1.002-1.030); Urine Urobilinogen Negative (Negative)
[2020-11-30 12:05] LABS: Urine Bacteria Absent (Absent); Urine Red Blood Cell 1+(3-5/hpf) (Absent); Urine Squamous Epithelial Cell Present (Absent); Urine White Blood Cell Trace(0-5/hpf) (Absent)
[2020-11-30] MEDS: Dorzolamide/Timolol OPTH (NF) 10 ML BOT RIGHT EYE SCH ×2 (15:04→20:27)
[2020-11-30] MEDS: ZOSYN 3.375 GM Q8H per EXTENDED INFUSION IV SCH ×2 (16:06→23:54)
[2020-11-30] MEDS: Latanoprost 0.005% 2.5 ml BTL LEFT EYE SCH (19:37)
[2020-11-30] MEDS: Netarsudil Mesylat/Lananoprost 0.02%-0.005% EYE DRP 2.5 ml BOTTLE RIGHT EYE SCH (20:27)
[2020-11-30] MEDS: levETIRAcetam IV 750 MG in NS 0.9% 100 ml BAG 100 ML IVPB SCH (20:34)
[2020-12-01] MEDS: Acetaminophen IV 1 GM/100ML 100 ML IVPB SCH (02:17)
[2020-12-01 05:00] LABS: ABS Lymphocytes 0.9 10^3/ul (1.0-4.8); ABS Monocytes 0.9 10^3/ul (0-0.8); ABS Neutrophils 8.1 10^3/ul (1.5-7.7); Eosinophil % 0.3 %; Hematocrit 45 % (35-47); Hemoglobin 15.1 g/dL (12.0-16.0); Lymphocyte % 8.8 %; Mean Corpuscular HGB Conc 34 g/dL (31-36); Mean Corpuscular Hemoglobin 32 pg (27-31); Mean Corpuscular Volume 96 fL (80-97); Platelet Count 254 10^3/uL (150-450); Red Blood Count 4.65 10^6 /uL (3.70-4.87); Red Cell Distribution Width 15 % (10-15); White Blood Count 9.9 10^3/uL (3.5-10.8)
[2020-12-01] MEDS: Levothyroxine 100 MCG/5 ML VIAL IV SCH (05:11)
[2020-12-01 05:24] LABS: EGFR African American 102.3 (>60); EGFR Non-African American 84.6 (>60); Magnesium 2.4 mg/dL (1.9-2.7); Phosphorus 3.1 mg/dL (2.5-5.0); Potassium 3.6 mmol/L (3.5-5.0)
[2020-12-01] MEDS: levETIRAcetam IV 750 MG in NS 0.9% 100 ml BAG 100 ML IVPB SCH ×2 (08:17→21:07)
[2020-12-01] MEDS: ZOSYN 3.375 GM Q8H per EXTENDED INFUSION IV SCH ×3 (08:17→23:57)
[2020-12-01] MEDS: Dorzolamide/Timolol OPTH (NF) 10 ML BOT RIGHT EYE SCH ×3 (08:18→21:06)
[2020-12-01] MEDS ORDERED: Potassium Chloride LIQUID 20 MEQ/15 ML LIQUID PO ONE (08:45)
[2020-12-01] MEDS ORDERED: Furosemide 40 mg/4 ml IV VIAL IV ONE (08:45)
[2020-12-01] MEDS: KCL 20 MEQ/100 ML IVPREMIX 20 MEQ/100 ML BAG IV SCH ×2 (12:09→14:28)
[2020-12-01] MEDS ORDERED: Haloperidol 5 mg/ml SDV IV/IM 5 MG/ML AMP IV SLOW PU PRN (15:12)
[2020-12-01] MEDS: Latanoprost 0.005% 2.5 ml BTL LEFT EYE SCH (20:23)
[2020-12-01] MEDS: Netarsudil Mesylat/Lananoprost 0.02%-0.005% EYE DRP 2.5 ml BOTTLE RIGHT EYE SCH (20:23)
[2020-12-02 04:58] LABS: ABS Basophils 0.1 10^3/ul (0-0.2); ABS Eosinophils 0.1 10^3/ul (0-0.6); ABS Lymphocytes 1.5 10^3/ul (1.0-4.8); ABS Monocytes 0.9 10^3/ul (0-0.8); ABS Neutrophils 6.2 10^3/ul (1.5-7.7); Eosinophil % 1.5 %; Hematocrit 46 % (35-47); Hemoglobin 15.4 g/dL (12.0-16.0); Lymphocyte % 17.2 %; Mean Corpuscular HGB Conc 34 g/dL (31-36); Mean Corpuscular Hemoglobin 32 pg (27-31); Mean Corpuscular Volume 96 fL (80-97); Mean Platelet Volume 8.1 fL (7.4-10.4); Platelet Count 243 10^3/uL (150-450); Red Blood Count 4.79 10^6 /uL (3.70-4.87); Red Cell Distribution Width 15 % (10-15); White Blood Count 8.8 10^3/uL (3.5-10.8)
[2020-12-02 05:18] LABS: Calcium 9.2 mg/dL (8.6-10.3); EGFR African American 91.4 (>60); EGFR Non-African American 75.5 (>60); Phosphorus 3.1 mg/dL (2.5-5.0); Potassium 3.6 mmol/L (3.5-5.0)
[2020-12-02] MEDS: Levothyroxine 100 MCG/5 ML VIAL IV SCH (05:25)
[2020-12-02] MEDS: KCL 20 MEQ/100 ML IVPREMIX 20 MEQ/100 ML BAG IV SCH ×2 (05:42→08:18)
[2020-12-02] MEDS: ZOSYN 3.375 GM Q8H per EXTENDED INFUSION IV SCH (08:18)
[2020-12-02] MEDS: Dorzolamide/Timolol OPTH (NF) 10 ML BOT RIGHT EYE SCH ×3 (08:22→22:26)
[2020-12-02 09:42] LABS: TSH Ultra Thyroid Stim Horm 7.48 mcIU/mL (0.34-5.60)
[2020-12-02] MEDS ORDERED: LORazepam 2 mg VIAL 1 ml IV PUSH ONE (18:53)
[2020-12-02] MEDS: Netarsudil Mesylat/Lananoprost 0.02%-0.005% EYE DRP 2.5 ml BOTTLE RIGHT EYE SCH (21:19)
[2020-12-02] MEDS: Latanoprost 0.005% 2.5 ml BTL LEFT EYE SCH (21:20)
[2020-12-03 05:20] LABS: Calcium 9.2 mg/dL (8.6-10.3); EGFR African American 107.8 (>60); EGFR Non-African American 89.1 (>60)
[2020-12-03] MEDS: Levothyroxine 100 MCG/5 ML VIAL IV SCH (05:45)
[2020-12-03] MEDS: Dorzolamide/Timolol OPTH (NF) 10 ML BOT RIGHT EYE SCH ×3 (08:16→22:53)
[2020-12-03] MEDS: Netarsudil Mesylat/Lananoprost 0.02%-0.005% EYE DRP 2.5 ml BOTTLE RIGHT EYE SCH (22:52)
[2020-12-03] MEDS: Latanoprost 0.005% 2.5 ml BTL LEFT EYE SCH (22:54)
[2020-12-04] MEDS: Levothyroxine 100 MCG/5 ML VIAL IV SCH (07:21)
[2020-12-04] MEDS: Dorzolamide/Timolol OPTH (NF) 10 ML BOT RIGHT EYE SCH ×3 (09:42→21:03)
[2020-12-04] MEDS: Netarsudil Mesylat/Lananoprost 0.02%-0.005% EYE DRP 2.5 ml BOTTLE RIGHT EYE SCH (21:01)
[2020-12-04] MEDS: Latanoprost 0.005% 2.5 ml BTL LEFT EYE SCH (21:02)
[2020-12-05] MEDS: Levothyroxine 100 MCG/5 ML VIAL IV SCH (05:52)
[2020-12-05 05:57] LABS: ABS Eosinophils 0.2 10^3/ul (0-0.6); ABS Monocytes 0.4 10^3/ul (0-0.8); Eosinophil % 4.2 %; Hematocrit 44 % (35-47); Hemoglobin 14.9 g/dL (12.0-16.0); Mean Corpuscular HGB Conc 34 g/dL (31-36); Mean Corpuscular Hemoglobin 33 pg (27-31); Mean Corpuscular Volume 96 fL (80-97); Mean Platelet Volume 8.1 fL (7.4-10.4); Platelet Count 192 10^3/uL (150-450); Red Blood Count 4.59 10^6 /uL (3.70-4.87); Red Cell Distribution Width 14 % (10-15); White Blood Count 4.6 10^3/uL (3.5-10.8)
[2020-12-05 06:06] LABS: Calcium 9.2 mg/dL (8.6-10.3)
[2020-12-05 06:12] LABS: EGFR Non-African American 105.8 (>60)
[2020-12-05] MEDS: Dorzolamide/Timolol OPTH (NF) 10 ML BOT RIGHT EYE SCH ×3 (08:58→21:00)
[2020-12-05 12:42] LABS: Free T3 2.4 pg/mL (2.5-3.9)
[2020-12-05 12:43] LABS: Free T4 1.05 ng/dL (0.61-1.12)
[2020-12-05] MEDS: hydrALAZINE 20 mg/ml 1 ML Vial IV IV SLOW PU PRN (15:34)
[2020-12-05] MEDS: Netarsudil Mesylat/Lananoprost 0.02%-0.005% EYE DRP 2.5 ml BOTTLE RIGHT EYE SCH (21:00)
[2020-12-05] MEDS: Latanoprost 0.005% 2.5 ml BTL LEFT EYE SCH (21:01)
[2020-12-06] MEDS: Dorzolamide/Timolol OPTH (NF) 10 ML BOT RIGHT EYE SCH ×3 (09:15→19:57)
[2020-12-06] MEDS: Netarsudil Mesylat/Lananoprost 0.02%-0.005% EYE DRP 2.5 ml BOTTLE RIGHT EYE SCH (19:56)
[2020-12-06] MEDS: Latanoprost 0.005% 2.5 ml BTL LEFT EYE SCH (19:58)
[2020-12-07] MEDS: Dorzolamide/Timolol OPTH (NF) 10 ML BOT RIGHT EYE SCH ×3 (07:52→21:15)
[2020-12-07] MEDS: Latanoprost 0.005% 2.5 ml BTL LEFT EYE SCH (20:52)
[2020-12-07] MEDS: Netarsudil Mesylat/Lananoprost 0.02%-0.005% EYE DRP 2.5 ml BOTTLE RIGHT EYE SCH (21:01)
[2020-12-08] MEDS: Dorzolamide/Timolol OPTH (NF) 10 ML BOT RIGHT EYE SCH (08:58)
[2020-12-08 11:36] VITALS: BP 120/72
== END 2020-12-08 13:30 | disposition home health service (06) | DRG 101 ==
LOC: ED 13:51 → ICU 16:36 → MEDTELE 12-03 14:38
PROVIDERS: ADMIT Internal Medicine Critical Care Medicine; ATTEND Hospitalist